=== PATIENT | male | born 1995 | race African-American/Black ===

== ENCOUNTER 2019-03-23 12:48 | Emergency (ER) | payer BC, SELFPAY ==
[2019-03-23 12:54] VITALS: BP 140/90; PULSE 93; RESP 18; TEMP 36.7; O2SAT 100
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
[2019-03-23 13:51] VITALS: BP 140/90; PULSE 93; RESP 18; TEMP 36.7; O2SAT 100
--- NOTE | 2019-03-23 13:52 | NUR.NOTE ---
Nursing Note: pt given clear instructions on over the counter topical antibiotic treatments
== END 2019-03-23 13:37 | disposition home or self-care (01) ==
PROVIDERS: Emergency Provider Physician Assistant; PCP Internal Medicine
DX: S00.81XA Abrasion of other part of head, initial encounter (principal); W55.22XA Struck by cow, initial encounter
CPT/HCPCS: 99283

== ENCOUNTER 2020-05-12 07:39 | Outpatient (CLI) | payer SELFPAY ==
[2020-05-13 19:51] LABS: SARS-CoV-2 RNA Undetected (Undetected); SARS-CoV-2 Specimen Source Nasopharynx
== END 2020-05-12 07:59 ==
PROVIDERS: PCP Nurse Practitioner; Visit Provider Nurse Practitioner
DX: Z11.59 Encounter for screening for other viral diseases (principal)
CPT/HCPCS: U0003

== ENCOUNTER 2021-04-13 16:38 | Outpatient (REF) | payer SELFPAY ==
[2021-04-13 20:15] LABS: Absolute Basophil Count 0.01 10^3/uL (0.0-0.2); Absolute Eosinophil Count 0.03 10^3/uL (0.0-0.7); Absolute Lymphocyte Count 1.74 10^3/uL (1.2-3.4); Absolute Monocyte Count 0.58 10^3/uL (0.1-0.8); Absolute Neutrophil Count 2.63 10^3/uL (1.2-6.7); Basophils % 0.2; Eosinophils % 0.6; HCT 45.5 % (40.0-50.0); Lymphocytes % 34.9; MCH 27.7 pg (27.0-33.0); MCV 83.9 fL (80-95); MPV 11.3 fL (8.0-11.0); Monocytes % 11.6; Neutrophils % 52.7; Nucleated RBC 0 %; Platelet Count 232 10^3/uL (130-400); RBC 5.42 10^6/uL (4.36-5.78); RDW 12.1 % (11.8-14.1); RDW-SD 36.4 fL; WBC 4.99 10^3/uL (4.4-10.8)
[2021-04-13 20:22] LABS: ESR 7 mm/hr (0-15)
[2021-04-13 20:53] LABS: ALT 31 U/L (16-63); AST 16 U/L (15-37); Alkaline Phosphatase 73 U/L (46-116); Anion Gap 8.3 mmol/L (3-11); BUN 10 mg/dL (7-18); Bilirubin, Total 0.3 mg/dL (0.2-1.0); CO2 26.7 mmol/L (21.0-32.0); Calcium 9.1 mg/dL (8.5-10.1); Chloride 104 mmol/L (98-107); Glucose 90 mg/dL (74-106); Potassium 4.1 mmol/L (3.5-5.1); Sodium 139 mmol/L (136-145); Total Protein 7.5 g/dL (6.4-8.2)
[2021-04-15 10:34] LABS: Lyme Ab w Rflx to Lyme Confirm Negative (Negative)
[2021-04-16 13:05] LABS: Anaplasma phagocytophilum Negative (Negative); B. miyamotoi PCR Negative (Negative); Babesia divergens/MO-1 Negative (Negative); Babesia duncani Negative (Negative); Babesia microti Negative (Negative); Ehrlichia chaffeensis Negative (Negative); Ehrlichia ewingii/canis Negative (Negative); Ehrlichia muris eauclairensis Negative (Negative)
== END 2021-04-13 16:39 | disposition home or self-care (01) ==
LOC: LBN 16:38
PROVIDERS: PCP Nurse Practitioner; Visit Provider Nurse Practitioner Family
DX: W57.XXXA Bitten or stung by nonvenomous insect and other nonvenomous arthropods, initial encounter (principal); R53.83 Other fatigue; T14.8XXA Other injury of unspecified body region, initial encounter
CPT/HCPCS: 80053; 85652; 87798; 85025; 86618